=== PATIENT | female | born 1985 | race Caucasian/White ===

== ENCOUNTER → 2019-04-14 | Outpatient (CLI) | payer BC ==
[~2019-04-14] MED LIST: LEVSOD125 PO; SULI150 PO
== END ==
LOC: LAB 10:57 → LAB SHORT 10:57
PROVIDERS: Student in an Organized Health Care Education/Training Program
DX: Z01.419 Encounter for gynecological examination (general) (routine) without abnormal findings (principal)
CPT/HCPCS: G0145

== ENCOUNTER → 2024-11-26 | Outpatient (CLI) | payer OTHER ==
[2024-11-27 00:09] LABS: Candida Group, PCR NOT DETECTED (NOT DETECT); Candida glabrata-krusei, PCR NOT DETECTED (NOT DETECT); Chlamydia Trachomatis Cervix NOT DETECTED (NOT DETECT); Neisseria Gonorrhoea Cervix NOT DETECTED (NOT DETECT)
[2024-11-27 11:27] LABS: Bacterial Vaginosis PCR Positive (NEGATIVE)
[2024-12-06 18:00] LABS: HPV GENOTYPE 16 BY TMA Not Detected; HPV GENOTYPE 18/45 BY TMA Not Detected; HPV HIGH RISK BY TMA Detected; HPV SOURCE Cervical; HPVG SOURCE Cervical
== END ==
LOC: LAB SHORT 16:28 → LAB 16:28
PROVIDERS: Family Medicine
DX: Z01.419 Encounter for gynecological examination (general) (routine) without abnormal findings (principal)
CPT/HCPCS: 81515; 87491; 87591; 87624; 87625; G0123

== ENCOUNTER → 2024-12-23 | Outpatient (CLI) | payer OTHER ==
[2024-12-23 14:07] LABS: Bacterial Vaginosis PCR Negative (NEGATIVE); Candida Group, PCR NOT DETECTED (NOT DETECT); Candida glabrata-krusei, PCR NOT DETECTED (NOT DETECT)
[2024-12-26 05:07] LABS: MYCOPLASMA GENITALIUM BY PCR Not Detected; MYCOPLASMA HOMINIS BY PCR Not Detected; UREAPLASMA MYCOPLASMA SOURCE Urine; UREAPLASMA PARVUM BY PCR Detected; UREAPLASMA UREALYTICUM BY PCR Not Detected
== END ==
LOC: LAB SHORT 10:24 → LAB 10:24
PROVIDERS: Obstetrics & Gynecology
DX: Z11.3 Encounter for screening for infections with a predominantly sexual mode of transmission (principal); N76.0 Acute vaginitis; B96.89 Other specified bacterial agents as the cause of diseases classified elsewhere
CPT/HCPCS: 81515; 87563; 87798

== ENCOUNTER 2025-06-29 10:03 | Day surgery (SDC) | payer OTHER ==
[~2025-06-29] VITALS: Ht 175.3 cm; Wt 91.6 kg
[2025-06-29] MEDS ORDERED: CeFAZolin Sodium 2,000 MG VIAL ONE (10:27)
[2025-06-29] MEDS ORDERED: FAMO20 PO (10:53)
[2025-06-29] MEDS ORDERED: DIPH25 PO (10:55)
[2025-06-29] MEDS ORDERED: ISIBLOOM 28 DA1 EAC1 PO (10:55)
[2025-06-29] MEDS ORDERED: ZYRTEC10 M2 PO (10:55)
[2025-06-29] MEDS ORDERED: THERA-D2000 UNIT PO (10:56)
[2025-06-29] MEDS ORDERED: ZINC15 PO (10:56)
[2025-06-29] MEDS ORDERED: C COMPLEX1000 M1 PO (10:56)
[2025-06-29] MEDS ORDERED: Dexmedetomidine HCL 200 MCG / 2 ML ONE (12:47)
[2025-06-29] MEDS ORDERED: Tranexamic Acid 100 ML IV ONE (13:03)
[2025-06-29] MEDS ORDERED: Midazolam HCl 1MG / ML 2ML Vial ONE (13:47)
[2025-06-29] MEDS ORDERED: Bupivacaine 0.5% HCl 5 MG/ML 30MLVIAL ONE (13:48)
[2025-06-29] MEDS ORDERED: Dexamethasone Sod Phos 10 MG/ML 1ML VIAL ONE (14:06)
[2025-06-29] MEDS ORDERED: Rocuronium Bromide 10 MG/ML 5ML Injection IV ONE (14:19)
--- NOTE | 2025-06-29 14:21 | NUR ---
06/29/25 1421 Ayde Rosenthal TIME OUT PERFORMED AT BEDSIDE WITH DR BOWLING AT 1407. INTERSCALENE NERVE BLOCK STARTED AT 1412 AND ENDED AT 1413. PT PLACED ON 2L O2 VIA N/C. SPO2 AND HR MONITORED THROUGHOUT PROCEDURE. PT TOLERATED PROCEDURE WELL WITHOUT ANY NOTED DIFFICULTIES.
[2025-06-29] MEDS ORDERED: Ondansetron HCl 2 MG / ML 2ML Vial ONE (14:35)
[2025-06-29] MEDS ORDERED: Phenylephrine HCl 100 MCG/ML-NS 10MLSYR (1MG/10ML) ONE (14:50)
[2025-06-29] MEDS ORDERED: Glycopyrrolate 0.2 MG/ML 5ML VIAL ONE (14:53)
[2025-06-29] MEDS ORDERED: Sugammadex Sodium 200 MG/2ML SDV (100 MG/ML) ONE (15:14)
[2025-06-29 16:57] VITALS: BP 123/59
== END 2025-06-29 16:40 | disposition home or self-care (01) ==
LOC: ORSCSDS 10:03 → ORD 07-01 09:45 → ORSCSDS 07-01 09:45
PROVIDERS: Orthopaedic Surgery Sports Medicine
PROC: 0RNJ4ZZ Release Right Shoulder Joint, Percutaneous Endoscopic Approach (ICD-10-PCS; principal; 2025-06-29 11:30)
PROC: 0RCJ4ZZ Extirpation of Matter from Right Shoulder Joint, Percutaneous Endoscopic Approach (ICD-10-PCS; principal; 2025-06-29 11:30)
DX: M19.011 Primary osteoarthritis, right shoulder (principal); K21.9 Gastro-esophageal reflux disease without esophagitis; E07.9 Disorder of thyroid, unspecified; Z79.899 Other long term (current) drug therapy
CPT/HCPCS: J0166; J0690; J1100; J2250; J2371; J2405; J2704; J7120

== ENCOUNTER → 2025-07-20 | Outpatient (CLI) | payer OTHER ==
[~2025-07-20] MED LIST changes: +C COMPLEX1000 M1 PO; +DIPH25 PO; +FAMO20 PO; +ISIBLOOM 28 DA1 EAC1 PO; +THERA-D2000 UNIT PO; +ZINC15 PO; +ZYRTEC10 M2 PO
== END | disposition home or self-care (01) ==
LOC: LAB 11:56 → LAB SHORT 11:56
PROVIDERS: Obstetrics & Gynecology
DX: R87.614 Cytologic evidence of malignancy on smear of cervix (principal)
CPT/HCPCS: 87624; G0145